=== PATIENT | female | born 1995 ===

== ENCOUNTER 2017-01-23 10:49 | Inpatient (IN) ==
[2017-01-23] MEDS ORDERED: ONDANSETRON 4 MG/2 ML VIAL IV PRN (11:08)
[2017-01-23] MEDS: LACTATED RINGERS 1,000 ML IV SCH ×2 (11:15→12:44)
[2017-01-23] MEDS ORDERED: OXYTOCIN/LR 20 UNIT/1,000 ML BAG IV SCH (11:30)
[2017-01-23 11:35] LABS: Basophils % 0.3 % (0.0-0.8); Eosinophils % 0.3 % (0.00-10.9); Hematocrit 33.4 VOL% (35.7-47.0); Hemoglobin 11.9 GM/DL (12.0-16.0); Immature Granulocytes % 0.4 %; Immature Granulocytes Absolute 0.03 #; Lymphocytes # 1.8 10*3/uL (1.4-4.0); Lymphocytes % 24.1 % (21.3-54.2); Mean Corpuscular HGB Conc 35.6 GM/DL (32-36); Mean Corpuscular Hemoglobin 32 PG (27-34); Mean Corpuscular Volume 90.5 FL (87-102); Mean Platelet Volume 11.7 FL (9.6-12.0); Monocytes # 0.4 10*3/uL (0.11-0.8); Monocytes % 6.1 % (1.7-12.7); Neutrophils % 68.8 % (38.7-73.9); Platelet Count 230 T/CUMM (130-400); Red Blood Count 3.69 MC/CUMM (3.8-5.5); Red Cell Distribution Width 12.3 % (9.3-17.3); White Blood Count 7.3 T/CUMM (4-12)
[2017-01-23] MEDS ORDERED: hydrOXYzine HCL 25 MG/1 ML VIAL IM PRN (12:09)
[2017-01-23] MEDS ORDERED: diphenhydrAMINE 50 MG/1 ML VIAL IV PRN ×2 (12:09)
[2017-01-23] MEDS ORDERED: PROMETHAZINE 25 MG/1 ML VIAL IM ONE (12:09)
[2017-01-23] MEDS ORDERED: ONDANSETRON 4 MG/2 ML VIAL IV ONE (12:09)
[2017-01-23] MEDS ORDERED: ePHEDrine 50 MG/ML AMP IV PRN (12:09)
[2017-01-23 12:10] LABS: Albumin 2.6 G/DL (3.4-5.0); Bilirubin,Total 0.4 MG/DL (0.2-1.0); Calcium 8.9 MG/DL (8.5-10.1); Osmolality,Calculated 275.7 MOS/KG (273-304); Potassium 3.7 MMOL/L (3.5-5.1); Total Protein 6.9 G/DL (6.4-8.3); Uric Acid 4.9 MG/DL (2.6-6.0)
[2017-01-23] MEDS ORDERED: FAMOTIDINE 20 MG/2 ML VIAL IV ONE (12:11)
[2017-01-23] MEDS ORDERED: CITRIC ACID/SODIUM CITRATE 30 ML UDCUP PO ONE (12:11)
[2017-01-23] MEDS ORDERED: fentaNYL 2 MCG/ROPIV 0.2% EPID 150 ML EPIDURAL SCH (12:30)
[2017-01-23] MEDS ORDERED: miSOPROStol 200 MCG TABLET ONE (17:14)
[2017-01-23 18:22] LABS: Cord Arterial Blood HCO3 21.3 MMOL/L
[2017-01-23 18:26] LABS: Cord Venous Blood HCO3 21.5 MMOL/L; Cord Venous Blood PCO2 46.1 MMHG; Cord Venous Blood PO2 30.2
[2017-01-23] MEDS ORDERED: IBUPROFEN 800 MG TABLET PO PRN (20:38)
[2017-01-23] MEDS ORDERED: BISACODYL 10 MG SUPP RECTAL PRN (20:38)
[2017-01-23] MEDS ORDERED: LANOLIN 50% CREAM 0.3 OZ TUBE TOP PRN (20:38)
[2017-01-23] MEDS ORDERED: BENZOCAINE 20%/MENTHOL 0.5% SPRAY 56 GM CAN TOP PRN (20:38)
[2017-01-23] MEDS ORDERED: MEASLES/MUMPS/RUBELLA VACCINE 0.5 ML VIAL SUBCUT ONE (20:38)
[2017-01-23] MEDS ORDERED: ACETAMINOPHEN 325 MG TABLET PO PRN (20:38)
[2017-01-23] MEDS ORDERED: oxyCODONE/ACETAMINOPHEN 5-325 MG TABLET PO PRN ×2 (20:38)
[2017-01-23] MEDS ORDERED: HYDROCORTISONE 2.5% RECTAL CREAM 30 GM TUBE TOP PRN (20:38)
[2017-01-23] MEDS ORDERED: DIPH/TET/ACEL PERT BOOSTER VACCINE 0.5 ML VIAL IM ONE (20:38)
[2017-01-23] MEDS ORDERED: WITCH HAZEL PADS 100/JAR TOP PRN (20:38)
[2017-01-23] MEDS ORDERED: RHO(D) IMMUNE GLOBULIN 300 MCG SYRINGE IM ONE (20:38)
[2017-01-23] MEDS ORDERED: ACETAMINOPHEN/CODEINE 300-30 MG TABLET PO PRN (20:38)
[2017-01-23] MEDS ORDERED: OXYTOCIN/LR 20 UNIT/1,000 ML BAG IV ONE (20:40)
[2017-01-23] MEDS: DOCUSATE SODIUM 100 MG CAPSULE PO SCH (21:40)
[2017-01-24] MEDS: DOCUSATE SODIUM 100 MG CAPSULE PO SCH ×2 (09:25→22:11)
[2017-01-24 17:04] LABS: Basophils % 0.1 % (0.0-0.8); Eosinophils # 0.1 10*3/uL (0.0-0.87); Eosinophils % 1.2 % (0.00-10.9); Hematocrit 33.8 VOL% (35.7-47.0); Immature Granulocytes % 0.3 %; Immature Granulocytes Absolute 0.02 #; Mean Corpuscular HGB Conc 35.5 GM/DL (32-36); Mean Corpuscular Hemoglobin 32 PG (27-34); Mean Corpuscular Volume 89.9 FL (87-102); Mean Platelet Volume 12.2 FL (9.6-12.0); Monocytes # 0.5 10*3/uL (0.11-0.8); Neutrophils # 4.1 10*3/uL (1.4-7.4); Neutrophils % 61.4 % (38.7-73.9); Platelet Count 239 T/CUMM (130-400); Red Blood Count 3.76 MC/CUMM (3.8-5.5); Red Cell Distribution Width 12.2 % (9.3-17.3); White Blood Count 6.7 T/CUMM (4-12)
[2017-01-25 08:17] VITALS: BP 99/67
[2017-01-25] MEDS: DOCUSATE SODIUM 100 MG CAPSULE PO SCH (08:46)
== END 2017-01-25 14:44 | disposition home or self-care (01) | DRG 560 ==
LOC: N.LDOUT 10:49 → N.LD 10:50 → N.OB 21:05
PROVIDERS: ADMIT Obstetrics & Gynecology; ATTEND Obstetrics & Gynecology

== ENCOUNTER 2019-08-12 09:16 | Inpatient (IN) ==
[~2019-08-12 09:16] MED LIST: miSOPROStoL 200 MCG TABLET RECTAL ONE
[2019-08-12] MEDS ORDERED: TERBUTALINE 1 MG/1 ML VIAL SUBCUT PRN (10:51)
[2019-08-12] MEDS: LACTATED RINGERS 1,000 ML IV SCH ×3 (12:26→20:08)
[2019-08-12] MEDS ORDERED: OXYTOCIN/LR 20 UNIT/1,000 ML BAG IV PRN (15:24)
[2019-08-12] MEDS ORDERED: BUTORPHANOL 2 MG/ML VIAL IV PRN (15:24)
[2019-08-12] MEDS ORDERED: BUTORPHANOL 1 MG/ML VIAL IV PRN (15:24)
[2019-08-12] MEDS ORDERED: ONDANSETRON 4 MG/2 ML VIAL IV PRN (15:24)
[2019-08-12] MEDS ORDERED: NALOXONE 0.4 MG/ML VIAL IV PRN (15:47)
[2019-08-12] MEDS ORDERED: ONDANSETRON 4 MG/2 ML VIAL IV ONE (15:47)
[2019-08-12] MEDS ORDERED: PROMETHAZINE 25 MG/1 ML VIAL IM ONE (15:47)
[2019-08-12] MEDS ORDERED: FAMOTIDINE 20 MG/2 ML VIAL IV ONE (15:47)
[2019-08-12] MEDS ORDERED: CITRIC ACID/SODIUM CITRATE 30 ML UDCUP PO ONE (15:47)
[2019-08-12] MEDS ORDERED: diphenhydrAMINE 50 MG/1 ML VIAL IV PRN ×2 (15:47)
[2019-08-12] MEDS ORDERED: hydrOXYzine HCL 25 MG/1 ML VIAL IM PRN (15:47)
[2019-08-12 15:48] LABS: Basophils % 0.2 % (0.0-0.8); Hematocrit 35.7 VOL% (35.7-47.0); Hemoglobin 12.1 GM/DL (12.0-16.0); Immature Granulocytes % 0.5 %; Immature Granulocytes Absolute 0.02 #; Lymphocytes # 1.1 10*3/uL (1.4-4.0); Lymphocytes % 26.7 % (21.3-54.2); Mean Corpuscular HGB Conc 33.9 GM/DL (32-36); Mean Corpuscular Volume 92.7 FL (87-102); Mean Platelet Volume 13.3 FL (9.6-12.0); Monocytes % 4.9 % (1.7-12.7); Neutrophils % 67.7 % (38.7-73.9); Platelet Count 142 T/CUMM (130-400); Red Blood Count 3.85 MC/CUMM (3.8-5.5); Red Cell Distribution Width 12.4 % (9.3-17.3); White Blood Count 4.3 T/CUMM (4-12)
[2019-08-12] MEDS ORDERED: fentaNYL 2 MCG/ROPIV 0.2% EPID 100 ML EPIDURAL SCH (16:00)
[2019-08-12] MEDS ORDERED: LIDOCAINE 1% 50 ML VIAL ONE (16:01)
[2019-08-12] MEDS ORDERED: CARBOPROST TROMETHAMINE 250 MCG/ML AMP IM ONE (16:02)
[2019-08-12] MEDS ORDERED: AMPICILLIN INJ 2,000 MG in SODIUM CHLORIDE 0.9% 100 ML IV ONE (16:02)
[2019-08-12] MEDS ORDERED: miSOPROStoL 200 MCG TABLET ONE (16:02)
[2019-08-12] MEDS ORDERED: METHYLERGONOVINE 0.2 MG/1 ML AMP ONE (16:02)
[2019-08-12 16:18] LABS: Albumin 2.4 G/DL (3.4-5.0); Bilirubin,Total 0.7 MG/DL (0.2-1.0); Calcium 8.3 MG/DL (8.5-10.1); Osmolality,Calculated 270.7 MOS/KG (273-304); Total Protein 6.7 G/DL (6.4-8.3); Uric Acid 4.3 MG/DL (2.6-6.0)
[2019-08-12] MEDS ORDERED: ACETAMINOPHEN 500 MG TABLET PO PRN (17:56)
[2019-08-12 18:40] LABS: Apearance,Urine CLEAR (Clear); Bilirubin,Urine Negative (Negative); Blood, Urine Negative (Negative); Glucose,Urine (UA) Negative (Negative); Ketones,Urine 20 mg/dL (Negative); Mucus,Urine Occasional /LPF (Occasional); Nitrite,Urine Negative (Negative); Protein,Urine Negative; RBC,Urine 2 /HPF (0-4); Squamous Epithelial Cell,Urine Occasional /HPF (0-10); Urine Color Amber (Yellow); Urine Specific Gravity 1.013 (1.001-1.035); WBC,Urine 1 /HPF (0-6)
[2019-08-12] MEDS: ePHEDrine 50 MG/ML AMP IV PRN ×2 (20:47→23:08)
[2019-08-12] MEDS: AMPICILLIN INJ 1,000 MG in SODIUM CHLORIDE 0.9% 100 ML IV SCH (20:53)
[2019-08-13] MEDS ORDERED: MEASLES/MUMPS/RUBELLA VACCINE 0.5 ML VIAL SUBCUT ONE (00:16)
[2019-08-13] MEDS ORDERED: IBUPROFEN 800 MG TABLET PO PRN (00:16)
[2019-08-13] MEDS ORDERED: LANOLIN 50% CREAM 0.3 OZ TUBE TOP PRN (00:16)
[2019-08-13] MEDS ORDERED: HYDROCORTISONE 2.5% RECTAL CREAM 30 GM TUBE TOP PRN (00:16)
[2019-08-13] MEDS ORDERED: RHO(D) IMMUNE GLOBULIN 300 MCG SYRINGE IM ONE (00:16)
[2019-08-13] MEDS ORDERED: OXYTOCIN/LR 20 UNIT/1,000 ML BAG IV ONE (00:16)
[2019-08-13] MEDS ORDERED: ONDANSETRON 4 MG/2 ML VIAL IV PRN (00:16)
[2019-08-13] MEDS ORDERED: DIPH/TET/ACEL PERT BOOSTER VACCINE 0.5 ML VIAL IM ONE (00:16)
[2019-08-13] MEDS ORDERED: ACETAMINOPHEN 325 MG TABLET PO PRN (00:16)
[2019-08-13] MEDS ORDERED: BENZOCAINE 20%/MENTHOL 0.5% SPRAY 56 GM CAN TOP PRN (00:16)
[2019-08-13] MEDS ORDERED: BISACODYL 10 MG SUPP RECTAL PRN (00:16)
[2019-08-13] MEDS ORDERED: oxyCODONE/ACETAMINOPHEN 5-325 MG TABLET PO PRN (00:16)
[2019-08-13] MEDS ORDERED: WITCH HAZEL PADS 100/JAR TOP PRN (00:16)
[2019-08-13 00:50] LABS: Cord Arterial Blood HCO3 16.4 MMOL/L
[2019-08-13 00:51] LABS: Cord Venous Blood HCO3 20.5 MMOL/L; Cord Venous Blood PCO2 44.6 MMHG; Cord Venous Blood PO2 29.1 MMHG
[2019-08-13 06:31] LABS: Basophils % 0.1 % (0.0-0.8); Hematocrit 31.7 VOL% (35.7-47.0); Hemoglobin 10.7 GM/DL (12.0-16.0); Immature Granulocytes % 0.1 %; Immature Granulocytes Absolute 0.01 #; Lymphocytes # 1.6 10*3/uL (1.4-4.0); Lymphocytes % 22.2 % (21.3-54.2); Mean Corpuscular HGB Conc 33.8 GM/DL (32-36); Mean Corpuscular Volume 93.5 FL (87-102); Mean Platelet Volume 12.5 FL (9.6-12.0); Monocytes % 4.7 % (1.7-12.7); Neutrophils % 72.9 % (38.7-73.9); Platelet Count 144 T/CUMM (130-400); Red Blood Count 3.39 MC/CUMM (3.8-5.5); Red Cell Distribution Width 12.1 % (9.3-17.3)
[2019-08-13] MEDS: AMPICILLIN INJ 1,000 MG in SODIUM CHLORIDE 0.9% 100 ML IV SCH (07:45)
[2019-08-13] MEDS: oxyCODONE/ACETAMINOPHEN 5-325 MG TABLET PO PRN ×2 (08:51→21:09)
[2019-08-13] MEDS: DOCUSATE SODIUM 100 MG CAPSULE PO SCH ×2 (08:51→21:09)
[2019-08-14 06:21] LABS: Eosinophils % 0.3 % (0.00-10.9); Hematocrit 33.3 VOL% (35.7-47.0); Hemoglobin 11.2 GM/DL (12.0-16.0); Immature Granulocytes % 0.3 %; Immature Granulocytes Absolute 0.01 #; Lymphocytes # 1.6 10*3/uL (1.4-4.0); Lymphocytes % 45.4 % (21.3-54.2); Mean Corpuscular HGB Conc 33.6 GM/DL (32-36); Mean Corpuscular Volume 93.5 FL (87-102); Mean Platelet Volume 12.7 FL (9.6-12.0); Platelet Count 165 T/CUMM (130-400); Red Blood Count 3.56 MC/CUMM (3.8-5.5); Red Cell Distribution Width 12.1 % (9.3-17.3); White Blood Count 3.6 T/CUMM (4-12)
[2019-08-14 06:53] LABS: Calcium 8.3 MG/DL (8.5-10.1); Osmolality,Calculated 269.7 MOS/KG (273-304)
[2019-08-14] MEDS: DOCUSATE SODIUM 100 MG CAPSULE PO SCH (09:21)
[2019-08-14] MEDS: oxyCODONE/ACETAMINOPHEN 5-325 MG TABLET PO PRN (09:21)
[2019-08-14 11:31] VITALS: BP 113/60
== END 2019-08-14 13:21 | disposition home or self-care (01) | DRG 560 ==
LOC: N.LDOUT 09:16 → N.LD 09:19 → N.2E 08-13 03:01
PROVIDERS: ADMIT Obstetrics & Gynecology; ATTEND Obstetrics & Gynecology

== ENCOUNTER 2020-12-28 11:29 | Inpatient (IN) ==
[2020-12-28] MEDS ORDERED: BUTORPHANOL 2 MG/ML VIAL IV PRN (12:04)
[2020-12-28] MEDS ORDERED: LACTATED RINGERS 1,000 ML IV PRN (12:04)
[2020-12-28] MEDS ORDERED: MEPERIDINE 50 MG/1 ML VIAL IV PRN (12:04)
[2020-12-28] MEDS ORDERED: ONDANSETRON 4 MG/2 ML VIAL IV PRN (12:04)
[2020-12-28] MEDS ORDERED: FAMOTIDINE 20 MG/2 ML VIAL IV ONE (12:09)
[2020-12-28] MEDS ORDERED: ONDANSETRON 4 MG/2 ML VIAL IV ONE (12:09)
[2020-12-28] MEDS ORDERED: CITRIC ACID/SODIUM CITRATE 30 ML UDCUP PO ONE (12:09)
[2020-12-28] MEDS ORDERED: diphenhydrAMINE 50 MG/1 ML VIAL IV PRN ×2 (12:09)
[2020-12-28] MEDS ORDERED: hydrOXYzine HCL 25 MG/1 ML VIAL IM PRN (12:09)
[2020-12-28] MEDS ORDERED: ePHEDrine 50 MG/ML VIAL IV PRN (12:09)
[2020-12-28] MEDS ORDERED: PROMETHAZINE 25 MG/1 ML VIAL IM ONE (12:09)
[2020-12-28] MEDS ORDERED: LACTATED RINGERS 1,000 ML IV ONE (12:09)
[2020-12-28] MEDS ORDERED: NALOXONE 0.4 MG/ML VIAL IV PRN (12:09)
[2020-12-28] MEDS ORDERED: fentaNYL 2 MCG/ROPIV 0.2% EPID 100 ML EPIDURAL SCH (12:30)
[2020-12-28 12:32] LABS: Basophils % 0.2 % (0.0-0.8); Eosinophils % 0.5 % (0.00-10.9); Hemoglobin 11.6 GM/DL (12.0-16.0); Immature Granulocytes % 0.3 %; Immature Granulocytes Absolute 0.02 #; Lymphocytes # 1.7 10*3/uL (1.4-4.0); Lymphocytes % 29.8 % (21.3-54.2); Mean Corpuscular HGB Conc 34.1 GM/DL (32-36); Mean Corpuscular Volume 91.6 FL (87-102); Monocytes % 8.7 % (1.7-12.7); Neutrophils % 60.5 % (38.7-73.9); Platelet Count 235 T/CUMM (130-400); Red Blood Count 3.71 MC/CUMM (3.8-5.5); Red Cell Distribution Width 12.4 % (9.3-17.3); White Blood Count 5.7 T/CUMM (4-12)
[2020-12-28 13:12] LABS: Albumin 2.7 G/DL (3.4-5.0); Bilirubin,Total 0.5 MG/DL (0.20-1.00); Calcium 8.7 MG/DL (8.5-10.1); Osmolality,Calculated 268.1 MOS/KG (273-304); Potassium 3.6 MMOL/L (3.5-5.1); Total Protein 6.8 G/DL (6.4-8.2); Uric Acid 5.6 MG/DL (2.6-6.0)
[2020-12-28] MEDS: OXYTOCIN/LR 20 UNIT/1,000 ML BAG IV PRN ×2 (13:56→19:42)
[2020-12-28] MEDS ORDERED: miSOPROStoL 200 MCG TABLET ONE (16:00)
[2020-12-28] MEDS ORDERED: CARBOPROST TROMETHAMINE 250 MCG/ML AMP IM ONE (16:01)
[2020-12-28] MEDS ORDERED: METHYLERGONOVINE 0.2 MG/1 ML AMP ONE (16:01)
[2020-12-28 16:45] LABS: Cord Venous Blood PCO2 47.5 MMHG; Cord Venous Blood PO2 43.1
[2020-12-28] MEDS ORDERED: HYDROCORTISONE 2.5% RECTAL CREAM 30 GM TUBE TOP PRN (20:42)
[2020-12-28] MEDS ORDERED: BENZOCAINE 20%/MENTHOL 0.5% SPRAY 56 GM CAN TOP PRN (20:42)
[2020-12-28] MEDS ORDERED: WITCH HAZEL PADS 100/JAR TOP PRN (20:42)
[2020-12-28] MEDS ORDERED: DIPH/TET/ACEL PERT BOOSTER VACCINE 0.5 ML VIAL IM ONE (20:42)
[2020-12-28] MEDS ORDERED: MEASLES/MUMPS/RUBELLA VACCINE 0.5 ML VIAL SUBCUT ONE (20:42)
[2020-12-28] MEDS ORDERED: RHO(D) IMMUNE GLOBULIN 300 MCG SYRINGE IM ONE (20:42)
[2020-12-28] MEDS ORDERED: ACETAMINOPHEN 325 MG TABLET PO PRN (20:42)
[2020-12-28] MEDS ORDERED: OXYTOCIN/LR 20 UNIT/1,000 ML BAG IV ONE (20:42)
[2020-12-28] MEDS ORDERED: BISACODYL 10 MG SUPP RECTAL PRN (20:42)
[2020-12-28] MEDS ORDERED: oxyCODONE/ACETAMINOPHEN 5-325 MG TABLET PO PRN ×2 (20:42)
[2020-12-28] MEDS ORDERED: LANOLIN 50% CREAM 0.3 OZ TUBE TOP PRN (20:42)
[2020-12-28] MEDS: IBUPROFEN 800 MG TABLET PO PRN (20:58)
[2020-12-28] MEDS: DOCUSATE SODIUM 100 MG CAPSULE PO SCH (20:59)
[2020-12-29] MEDS: IBUPROFEN 800 MG TABLET PO PRN ×3 (06:05→23:23)
[2020-12-29 07:27] LABS: Eosinophils % 0.5 % (0.00-10.9); Hematocrit 32.5 VOL% (35.7-47.0); Hemoglobin 11.1 GM/DL (12.0-16.0); Immature Granulocytes % 0.3 %; Immature Granulocytes Absolute 0.02 #; Lymphocytes % 26.8 % (21.3-54.2); Mean Corpuscular HGB Conc 34.2 GM/DL (32-36); Mean Platelet Volume 12.3 FL (9.6-12.0); Monocytes % 6.4 % (1.7-12.7); Platelet Count 195 T/CUMM (130-400); Red Blood Count 3.57 MC/CUMM (3.8-5.5); Red Cell Distribution Width 12.4 % (9.3-17.3); White Blood Count 7.5 T/CUMM (4-12)
[2020-12-29] MEDS: DOCUSATE SODIUM 100 MG CAPSULE PO SCH ×2 (09:29→21:23)
[2020-12-30 08:12] VITALS: BP 117/78
[2020-12-30] MEDS ORDERED: INFLUENZA VIRUS VACCINE 0.5 ML SYRINGE IM ONE ×2 (09:00→11:00)
[2020-12-30] MEDS: DOCUSATE SODIUM 100 MG CAPSULE PO SCH (09:28)
== END 2020-12-30 12:50 | disposition home or self-care (01) | DRG 560 ==
LOC: N.LD 11:29 → N.OB 20:43
PROVIDERS: ADMIT Obstetrics & Gynecology; ATTEND Obstetrics & Gynecology